=== PATIENT | female | born 1965 | race American Indian/Alaskan Native ===

== ENCOUNTER 2018-11-25 11:29 | Emergency (ER) | payer BC ==
[2018-11-25 11:41] VITALS: RESP 18
[2018-11-25 12:20] VITALS: BMI 25.6
[2018-11-25] MEDS ORDERED: Sodium Chloride 0.9% 500 ML IV STA (12:20)
--- NOTE | 2018-11-25 12:27 | C.PDOC ---
Time Seen by Provider: 11/25/18 12:01 Chief Complaint (Nursing): Medical Clearance Past Medical History Vital Signs: Last Vital Signs Temp 98.9 F 11/25/18 11:38 Pulse 80 11/25/18 11:38 Resp 18 11/25/18 11:38 BP 181/105 H 11/25/18 11:38 Pulse Ox 100 11/25/18 11:38 Primary Care Provider: FAMILY PROVIDER,NO - Social History Hx Alcohol Use: No Hx Substance Use: No ED Course And Treatment O2 Sat by Pulse Oximetry: 100 Disposition - Disposition
[2018-11-25] MEDS ORDERED: Sodium Chloride 0.9% 0 ML ONE (12:35)
--- NOTE | 2018-11-25 12:45 | RAD ---
Date of service: 11/25/2018 PROCEDURE: CHEST RADIOGRAPH, 1 VIEW HISTORY: ?TIA COMPARISON: None available. FINDINGS: LUNGS: Clear. PLEURA: No pneumothorax or pleural fluid seen. CARDIOVASCULAR: No aortic atherosclerotic calcification present. Normal. OSSEOUS STRUCTURES: No significant abnormalities. VISUALIZED UPPER ABDOMEN: Normal. OTHER FINDINGS: None. IMPRESSION: No active disease.
[2018-11-25 12:58] LABS: HCG,QUALITATIVE URINE NEGATIVE (NEGATIVE)
[2018-11-25 13:01] LABS: URINE BACTERIA RARE (<OCC); URINE BILIRUBIN NEGATIVE (NEGATIVE); URINE BLOOD NEGATIVE (NEGATIVE); URINE CLARITY Clear (Clear); URINE COLOR Straw (YELLOW); URINE GLUCOSE (UA) NORMAL (Normal); URINE LEUKOCYTE ESTERASE NEG Leu/uL (Negative); URINE PROTEIN NEGATIVE (NEGATIVE); URINE UROBILINOGEN NORMAL mg/dL (0.2-1.0)
--- NOTE | 2018-11-25 13:12 | CT ---
Date of service: 11/25/2018 PROCEDURE: CT HEAD WITHOUT CONTRAST. HISTORY: left neck pain, left arm weakness/paresthesia COMPARISON: None available. TECHNIQUE: Axial computed tomography images were obtained through the head/brain without intravenous contrast. Radiation dose: Total exam DLP = 1104.56 mGy-cm. This CT exam was performed using one or more of the following dose reduction techniques: Automated exposure control, adjustment of the mA and/or kV according to patient size, and/or use of iterative reconstruction technique. FINDINGS: HEMORRHAGE: No intracranial hemorrhage. BRAIN: No mass effect or edema. Over each frontal parietal convexity mild prominence of the CSF space is compatible with the greater atrophy here. No significant appearing chronic microvascular ischemic changes. Tiny right basal ganglia lacune overseas axis series 4, image 19). VENTRICLES: Unremarkable. No hydrocephalus. CALVARIUM: Unremarkable. PARANASAL SINUSES: Unremarkable as visualized. No significant inflammatory changes. MASTOID AIR CELLS: Unremarkable as visualized. No inflammatory changes. OTHER FINDINGS: None. IMPRESSION: No intracranial hemorrhage or mass effect. Atrophy changes as above. Incidental right basal ganglia lacune.
[2018-11-25 13:18] VITALS: BP 150/98; PULSE 65; TEMP 98.6; O2SAT 98
[2018-11-25] MEDS ORDERED: Sodium Chloride 0.9% 500 ML IV ONE (13:27)
[2018-11-25 13:39] LABS: BASO % 0.8 % (0.0-2.0); LYMPH # 1.7 K/uL (1.0-4.3); MEAN CORPUSCULAR HEMOGLOBIN 27.2 pg (27.0-31.0)
[2018-11-25 13:44] LABS: EOS % 0.8 % (0.0-4.0); HEMOGLOBIN 13.3 g/dL (11.0-16.0); LYMPH % 49.8 % (20.0-40.0); MEAN CELL VOLUME 82.1 fL (81.0-99.0); MEAN CORPUSCULAR HGB CONC 33.1 g/dL (33.0-37.0); MEAN PLATELET VOLUME 10.7 fL (7.2-11.7); MONO # 0.5 K/uL (0.0-0.8); MONO % 14.9 % (0.0-10.0); NEUT # 1.2 K/uL (1.8-7.0); NEUT % 33.7 % (50.0-75.0); NRBC % 1.4 % (0.0-2.0); RBC 4.88 Mil/uL (3.80-5.20); RED CELL DISTRIBUTION WIDTH 13.4 % (11.5-14.5)
[2018-11-25 13:45] LABS: WHITE BLOOD COUNT 3.4 K/uL (4.8-10.8)
[2018-11-25 13:57] LABS: INR 1.2; PROTHROMBIN TIME 13.4 SECONDS (9.7-12.2)
[2018-11-25 14:14] LABS: ALB/GLOB RATIO 1.2 (1.0-2.1); ALBUMIN 4.1 g/dL (3.5-5.0); ALT/SGPT 29 U/L (9-52); AST/SGOT 28 U/L (14-36); BLOOD UREA NITROGEN 10 mg/dL (7-17); CALCIUM 9.4 mg/dl (8.6-10.4); CK-MB 2.43 ng/mL (0.0-3.38); GFR NON-AFRICAN AMERICAN > 60
--- NOTE | 2018-11-25 14:53 | C.PDOC ---
History Of Present Illness Patient is a 53 year old female who presents to the ED for evaluation of pain to the left side of her neck that is radiating to her left shoulder and going down her left arm that began today when she woke up. Patient states that she went to work her left arm began to feel like it was "tingling" so she decided to come to the ED. Patient denies any fever, chills, CP, SOB, nausea, vomiting, weakness, numbness, visual change, or sensory change. Time Seen by Provider: 11/25/18 12:01 Chief Complaint (Nursing): Medical Clearance History Per: Patient History/Exam Limitations: no limitations Onset/Duration Of Symptoms: Hrs Current Symptoms Are (Timing): Still Present Recent travel outside of the [place]: No Additional History Per: Patient Past Medical History Reviewed: Historical Data, Nursing Documentation, Vital Signs Vital Signs: Last Vital Signs Temp 98.6 F 11/25/18 13:09 Pulse 65 11/25/18 13:09 Resp 18 11/25/18 13:09 BP 150/98 H 11/25/18 13:09 Pulse Ox 98 11/25/18 13:09 Primary Care Provider: FAMILY PROVIDER,NO - Medical History PMH: No Chronic Diseases Surgical History: No Surg Hx Family History: States: No Known Family Hx - Social History Hx Alcohol Use: No Hx Substance Use: No Review Of Systems Except As Marked, All Systems Reviewed And Found Negative. Constitutional: Negative for: Fever, Chills Eyes: Negative for: Vision Change Cardiovascular: Negative for: Chest Pain Respiratory: Negative for: Shortness of Breath Gastrointestinal: Negative for: Nausea, Vomiting Musculoskeletal: Positive for: Neck Pain (left side of neck radiating to left shoulder and going down left arm) Neurological: Negative for: Weakness, Numbness, Other (sensory change) Physical Exam - Physical Exam Appears: Non-toxic, No Acute Distress Skin: Normal Color, Warm, Dry Head: Atraumatic, Normacephalic Eye(s): bilateral: Normal Inspection Oral Mucosa: Moist Neck: Supple, Other (tenderness to left lateral neck and pain with movement to left ) Chest: Symmetrical, No Deformity Cardiovascular: Rhythm Regular, No Murmur Respiratory: Normal Breath Sounds, No Rales, No Rhonchi, No Wheezing Gastrointestinal/Abdominal: Soft, No Tenderness, No Distention, No Rebound Extremity: Normal ROM Neurological/Psych: Oriented x3, Normal Cranial Nerves, Normal Motor, Normal Sensation, Normal Reflexes, Other (No obvious focal deficits ) ED Course And Treatment - Laboratory Results Result Diagrams: 11/25/18 13:32 11/25/18 13:32 Lab Results: PT 13.4 SECONDS (9.7-12.2) H 11/25/18 13:32 INR 1.2 11/25/18 13:32 APTT 28.0 SECONDS (21-34) 11/25/18 13:32 Troponin I < 0.0120 ng/mL (0.00-0.120) 11/25/18 13:32 Total Bilirubin 0.6 mg/dL (0.2-1.3) 11/25/18 13:32 AST 28 U/L (14-36) 11/25/18 13:32 ALT 29 U/L (9-52) 11/25/18 13:32 Alkaline Phosphatase 94 U/L (38-126) 11/25/18 13:32 Total Protein 7.6 g/dL (6.3-8.3) 11/25/18 13:32 Albumin 4.1 g/dL (3.5-5.0) 11/25/18 13:32 Globulin 3.5 gm/dL (2.2-3.9) 11/25/18 13:32 Albumin/Globulin Ratio 1.2 (1.0-2.1) 11/25/18 13:32 Urine Color Straw (YELLOW) 11/25/18 12:48 Urine Clarity Clear (Clear) 11/25/18 12:48 Urine pH 8.0 (5.0-8.0) 11/25/18 12:48 Ur Specific [place] 1.010 (1.003-1.030) 11/25/18 12:48 Urine Protein Negative mg/dL (NEGATIVE) 11/25/18 12:48 Urine Glucose (UA) Normal mg/dL (Normal) 11/25/18 12:48 Urine Ketones Negative mg/dL (NEGATIVE) 11/25/18 12:48 Urine Blood Negative (NEGATIVE) 11/25/18 12:48 Urine Nitrate Negative (NEGATIVE) 11/25/18 12:48 Urine Bilirubin Negative (NEGATIVE) 11/25/18 12:48 Urine Urobilinogen Normal mg/dL (0.2-1.0) 11/25/18 12:48 Ur Leukocyte Esterase Neg Mavis/uL (Negative) 11/25/18 12:48 Urine WBC (Auto) < 1 /hpf (0-5) 11/25/18 12:48 Urine Bacteria Rare (<OCC) 11/25/18 12:48 Urine HCG, Qual Negative (NEGATIVE) 11/25/18 12:48 Urine HCG, Qual Negative (NEGATIVE) 11/25/18 12:48 ECG: Interpreted By Me, Viewed By Me ECG Rhythm: Sinus Rhythm Interpretation Of ECG: No acute changes. Rate From EC O2 Sat by Pulse Oximetry: 98 (on RA) Pulse Ox Interpretation: Normal - Other Rad CXR X-Ray: Viewed By Me, Read By Radiologist Interpretation: Date of service: 11/25/2018. PROCEDURE: CHEST RADIOGRAPH, 1 VIEW. HISTORY: ?TIA. COMPARISON: None available. FINDINGS: LUNGS: Clear. PLEURA: No pneumothorax or pleural fluid seen. CARDIOVASCULAR: No aortic atherosclerotic calcification present. Normal. OSSEOUS STRUCTURES: No significant abnormalities. VISUALIZED UPPER ABDOMEN: Normal. OTHER FINDINGS: None. IMPRESSION: No active disease. - CT Scan/US CT Head Other Rad Studies (CT/US): Read By Radiologist, Radiology Report Reviewed CT/US Interpretation: Date of service: 11/25/2018. PROCEDURE: CT HEAD WITHOUT CONTRAST. HISTORY: left neck pain, left arm weakness/paresthesia. COMPARISON: None available. TECHNIQUE: Axial computed tomography images were obtained t hrough the head/brain without intravenous contrast. Radiation dose: Total exam DLP = 1104.56 mGy-cm. This CT exam was performed using one or more of the following dose reduction techniques: Automated exposure control, adjustment of the mA and/or kV according to patient size, and/or use of iterative reconstruction technique. FINDINGS: HEMORRHAGE: No intracranial hemorrhage. BRAIN: No mass effect or edema. Over each frontal parietal convexity mild prominence of the CSF space is compatible with the greater atrophy here. No significant appearing chronic microvascular ischemic changes. Tiny right basal ganglia lacune [place] axis series 4, image 19). VENTRICLES: Unremarkable. No hydrocephalus. CALVARIUM: Unremarkable. PARANASAL SINUSES: Unremarkable as visualized. No significant inflammatory changes. MASTOID AIR CELLS: Unremarkable as visualized. No inflammatory changes. OTHER FINDINGS: None. IMPRESSION: No intracranial hemorrhage or mass effect. Atrophy changes as above. Incidental right basal ganglia lacune. Progress Note: Plan: CAT Head. EKG. Labs. CXR. UA. IV Fluids. Diagnosis: Cervical Radiculopathy. Stroke signs negative. Workup inclulding CAT Head were normal. On reevaluation, patient feels fine, was ambulatory, and was discharged home with reports. Patient was instructed to follow up with PMD. NIHSS Stroke Scale - Date/Time Evaluation Performed Date Performed: 11/25/18 Time Performed: 12:21 When Was NIHSS Performed: Baseline - How Severe is the Stroke Level of Consciousness: 0=Alert LOC to Questions: 0=Both comments correct LOC to commands: 0=Obeys both correctly Best Gaze: 0=Normal Visual: 0=No visual loss Facial: 0=Normal Motor Arm - Left: 0=No drift Motor Arm - Right: 0=No drift Motor Leg - Right: 0=No drift Limb Ataxia: 0=Absent Sensory: 0=Normal Best Language: 0=No aphasia Dysarthia: 0=Normal articulation Extinction & Inattention (Neglect): 0=Normal, no object Disposition - Disposition Disposition: HOME/ ROUTINE Disposition Time: 14:44 Condition: IMPROVED Additional Instructions: Follow up with PMD within 1-2 days. Return to ED immediately if feel worse. Prescriptions: Lidocaine 5% [Lidoderm] 1 patch TP DAILY #10 patch Ibuprofen [Motrin Tab] 600 mg PO Q8 #30 tab Famotidine [Pepcid] 20 mg PO BID #20 tab Methocarbamol [Robaxin-750] 750 mg PO TID #30 tab Instructions: Radiculopathy Forms: [employer] (Albanian) - Clinical Impression Clinical Impression: Cervical radiculopathy - PA / COMPLIANCE REPRESENTATIVE / Resident Statement MD/DO has examined the patient and agrees with the treatment plan. - Scribe Statement The provider has reviewed the documentation as recorded by the Gerald Blanchard All medical record entries made by the Chidiibeverett were at my direction and personally dictated by me. I have reviewed the chart and agree that the record accurately reflects my personal performance of the history, physical exam, medical decision making, and the department course for this patient. I have also personally directed, reviewed, and agree with the discharge instructions and disposition.
--- NOTE | 2018-11-25 16:06 | CARD ---
APPROVED REPORT Date of service: 11/25/2018 EKG Measurement Heart [id number] <Conclusion> Normal sinus rhythm RSR' or QR pattern in V1 suggests right ventricular conduction delay Borderline ECG
== END 2018-11-25 15:15 | disposition home or self-care (01) ==
LOC: C.ER 11:29
DX: M54.12 Radiculopathy, cervical region (principal)
CPT/HCPCS: 70450; 71045; 80053; 81001; 82550; 82553; 84484; 84703; 85025; 85610; 85730; 93005; 96360; 99284; J7040